=== PATIENT | female | born 1945 | race Caucasian/White ===

== ENCOUNTER 2019-06-16 14:51 | Emergency (ER) | payer MEDICARE ==
[2019-06-16 15:01] VITALS: BP 165/88
[2019-06-16] MEDS ORDERED: predniSONE TAB* 20 MG PO ONE (15:14)
--- NOTE | 2019-06-16 15:36 | UC ---
Skin Complaint HPI - HPI Summary HPI Summary: Patient is a 73yo female presenting with rash to her right arm x4 days. She states she was working outside and came into contact with either poison sheyla or poison sumac when working in the yard on Thursday. States she wore gloves and the rash started above where her gloves ended. Notes she has had this before but never this bad. Notes rash is swollen, pruritic, warm, erythematous, and draining clean fluid. She says it has gotten worse since it first appeared. Also notes small area on left arm of same rash that has not gotten worse. She has taken benadryl and used cortisone cream without relief. Denies fever, chills , nausea, or vomiting. - History of Current Complaint Chief Complaint: UCRash Stated Complaint: RASH Hx Obtained From: Patient Onset/Duration: Sudden Onset, Lasting Days, Worse Since - Thursday Timing: Constant Onset Severity: Mild Current Severity: Moderate Pain Intensity: 6 Pain Scale Used: 0-10 Numeric - Allergy/Home Medications Allergies/Adverse Reactions: Allergies Allergy/AdvReac Type Severity Reaction Status Date / Time No Known Allergies Allergy Verified 06/16/19 15:01 Home Medications: Home Medications Glucosamine CAP (NF) 1 cap PO BID 06/16/19 [History Confirmed 06/16/19] PMH/Surg Hx/FS Hx/Imm Hx Endocrine History: Dyslipidemia Cardiovascular History: Hypertension - Surgical History Surgical History: Yes Surgery Procedure, Year, and Place: PARTIAL HYSTERECTOMY - - Family History Known Family History: Positive: Non-Contributory - Social History Alcohol Use: Rare Substance Use Type: None Smoking Status (MU): Former Smoker When Did the Patient Quit Smoking/Using Tobacco: 40 yrs ago - Immunization History Most Recent Influenza Vaccination: Aug 2014 Most Recent Pneumonia Vaccination: Aug 2014 Review of Systems All Other Systems Reviewed And Are Negative: Yes Constitutional: Positive: Negative. Negative: Fever, Chills, Fatigue Skin: Positive: Rash Eyes: Positive: Negative ENT: Positive: Negative Respiratory: Positive: Negative. Negative: Shortness Of Breath Cardiovascular: Positive: Negative. Negative: Palpitations, Chest Pain Gastrointestinal: Positive: Negative. Negative: Abdominal Pain, Vomiting, Diarrhea, Nausea Neurovascular: Positive: Negative. Negative: Decreased Sensation Musculoskeletal: Positive: Negative. Negative: Decreased ROM Neurological: Negative: Headache, Paresthesia, Numbness Physical Exam Triage Information Reviewed: Yes Appearance: Well-Appearing, No Pain Distress, Well-Nourished Vital Signs: Initial Vital Signs Temp 98.1 F 06/16/19 14:56 Pulse 72 06/16/19 14:56 Resp 16 06/16/19 14:56 BP 165/88 06/16/19 14:56 Pulse Ox 98 06/16/19 14:56 Vital Signs Reviewed: Yes Eyes: Positive: Conjunctiva Clear ENT: Positive: Hearing grossly normal Respiratory: Positive: No respiratory distress Cardiovascular: Positive: Pulses Normal, Brisk Capillary Refill Musculoskeletal Exam: Normal Musculoskeletal: Positive: Strength Intact, ROM Intact Neurological: Positive: Alert Psychological: Positive: Age Appropriate Behavior Skin: Positive: Rashes - vesicular rash surrounded by erythem on right posterior forearm and upper arm. vesicles not presently draining. warmth to touch noted. no fluctuance noted. Course/Dx - Course Course Of Treatment: Patient was treated with a dose of prednisone here and given a prescription for home to help alleviate inflammation and itching. It is possible that the patient has a concurrent cellulitis due to increasing redness and warmth since onset so I also gave her a prescription for Keflex. Patient instructed to not scratch the affected area and to keep the area clean and dry. Told her to follow up with her PCP if symptoms persist or to go to the emergency room if rash worsens, experience fever, chills, nausea, vomiting, or it becomes difficult to move that arm. Patient voiced understanding and agreed to the treatment plan. - Diagnoses Provider Diagnosis: Contact dermatitis Discharge ED - Sign-Out/Discharge Documenting (check all that apply): Patient Departure All imaging exams completed and their final reports reviewed: No Studies - Discharge Plan Condition: Stable Disposition: HOME Prescriptions: Cephalexin CAP* [Keflex CAP*] 500 mg PO TID #15 cap predniSONE TAB* [Deltasone 20 MG TAB*] 20 mg PO DAILY #5 tab Referrals: Jim Long MD [Primary Care Provider] - If Needed Additional Instructions: As discussed, take prednisone to help treat the inflammation and itching of your rash. Take the Keflex as prescribed for treatment of skin infection. Do not scratch the affected area. Keep the area clean and dry. Follow up with your primary care doctor if your symptoms persist. Go to the emergency room if your rash worsens, you experience fever, chills, nausea, vomiting, or it becomes difficult to move that arm. - Billing Disposition and Condition Condition: STABLE Disposition: Home
== END 2019-06-16 15:33 | disposition home or self-care (01) ==
LOC: UCEAST 14:51
DX: L25.5 Unspecified contact dermatitis due to plants, except food (principal); I10 Essential (primary) hypertension; Z87.891 Personal history of nicotine dependence
CPT/HCPCS: 99212; G0463; J7512